=== PATIENT | female | born 1985 | race Caucasian/White ===

== ENCOUNTER 2022-03-15 21:29 | Emergency (ER) | payer BC, MEDICAID ==
[~2022-03-15] VITALS: Ht 185.4 cm; Wt 90.0 kg
[2022-03-15] MEDS ORDERED: ONDANSETRON HCL 4MG/2ML INJ IV STA (22:55)
[2022-03-15] MEDS ORDERED: MORPHINE SULFATE 4 MG/ML CPJ (NOT FOR IM USE) IV STA (22:55)
[2022-03-15] MEDS ORDERED: SODIUM CHLORIDE 0.9% 1,000 ML IV ONE (23:00)
[2022-03-15 23:34] LABS: BASOPHILS % 0.1 % (0.0-2.0); EOSINOPHILS % 0.2 % (0.0-5.0); HEMATOCRIT. 38.9 % (36.0-48.0); HEMOGLOBIN. 13.2 g/dL (12.0-16.0); LYMPHOCYTES % 8.2 % (20.0-50.0); MEAN CORPUSCULAR HEMOGLOBIN 32.6 pg (28.0-32.0); MEAN CORPUSCULAR VOLUME 96.4 fL (81.0-99.0); MEAN PLATELET VOLUME 7.4 fl (7.4-10.4); MONOCYTES % 7.1 % (2.0-8.0); NEUTROPHILS % 84.4 % (40.0-76.0); PLATELET 239 x1000/uL (130-400); RED BLOOD CELL COUNT 4.03 mill/uL (4.2-5.4); RED CELL DISTRIBUTION WIDTH 12.7 % (11.6-14.6)
[2022-03-15 23:39] LABS: CHLORIDE 103 mEq/L (98-107)
[2022-03-15 23:55] LABS: CLARITY URINE CLEAR (CLEAR); COLOR URINE YELLOW (YELLOW); KETONES URINE NEGATIVE (NEGATIVE); LEUKOCYTE ESTERASE URINE NEGATIVE (NEGATIVE); NITRITE URINE NEGATIVE (NEGATIVE); OCCULT BLOOD URINE NEGATIVE (NEGATIVE); PROTEIN URINE NEGATIVE (NEGATIVE); SPECIFIC GRAVITY URINE 1.016 (1.005-1.030)
[2022-03-16] MEDS ORDERED: KETOROLAC 15MG/ML VIAL IV ONE (00:15)
[2022-03-16 05:20] VITALS: BP 124/78
== END 2022-03-16 05:39 | disposition home or self-care (01) ==
LOC: ER 21:29
DX: R10.9 Unspecified abdominal pain (principal); J45.909 Unspecified asthma, uncomplicated; F31.9 Bipolar disorder, unspecified; F20.9 Schizophrenia, unspecified; F90.9 Attention-deficit hyperactivity disorder, unspecified type; Z88.8 Allergy status to other drugs, medicaments and biological substances
CPT/HCPCS: 36415; 71045; 74176; 80053; 81003; 81025; 83690; 85025; 96361; 96374; 96375; 99285; J1885; J2405; J7030; J2270

== ENCOUNTER 2022-07-25 15:24 | Emergency (ER) | payer BC, MEDICAID ==
[~2022-07-25] VITALS: Ht 175.3 cm; Wt 78.0 kg
[2022-07-25] MEDS ORDERED: ONDANSETRON HCL 4MG/2ML INJ IV STA (16:20)
[2022-07-25] MEDS ORDERED: SODIUM CHLORIDE 0.9% 1,000 ML IV ONE ×2 (16:30)
[2022-07-25 16:56] LABS: HEMATOCRIT. 47.2 % (36.0-48.0); HEMOGLOBIN. 15.9 g/dL (12.0-16.0); MEAN CORPUSCULAR HEMOGLOBIN 32.8 pg (28.0-32.0); MEAN CORPUSCULAR VOLUME 97.3 fL (81.0-99.0); MEAN PLATELET VOLUME 8.3 fl (7.4-10.4); PLATELET 221 x1000/uL (130-400); RED BLOOD CELL COUNT 4.85 mill/uL (4.2-5.4); RED CELL DISTRIBUTION WIDTH 13.6 % (11.6-14.6)
[2022-07-25 17:02] LABS: CHLORIDE 103 mEq/L (98-107)
[2022-07-25 17:24] LABS: PLATELET ESTIMATE NORMAL
[2022-07-25 21:17] LABS: CLARITY URINE CLEAR (CLEAR); COLOR URINE YELLOW (YELLOW); KETONES URINE TRACE (NEGATIVE); LEUKOCYTE ESTERASE URINE NEGATIVE (NEGATIVE); NITRITE URINE NEGATIVE (NEGATIVE); OCCULT BLOOD URINE NEGATIVE (NEGATIVE); PH URINE 5.5 (4.5-8.0); PROTEIN URINE NEGATIVE (NEGATIVE); SPECIFIC GRAVITY URINE 1.025 (1.005-1.030); UROBILINOGEN URINE 0.2 E.U./dL (0.2-1.0)
[2022-07-25 22:00] VITALS: BP 111/80
[2022-07-25] MEDS ORDERED: ONDA8TAB13 MT (22:20)
== END 2022-07-25 23:10 | disposition home or self-care (01) ==
LOC: ER 15:24
DX: K52.9 Noninfective gastroenteritis and colitis, unspecified (principal); F31.9 Bipolar disorder, unspecified; F20.9 Schizophrenia, unspecified; J45.909 Unspecified asthma, uncomplicated
CPT/HCPCS: 36415; 80053; 81003; 83690; 84484; 85025; 87493; 93005; 96361; 96374; 99285; J2405; J7030